=== PATIENT | male | born 1975 | race Caucasian/White ===

== ENCOUNTER 2020-10-19 18:44 | Inpatient (IN) | payer MEDICARE, OTHER ==
[~2020-10-19] VITALS: Ht 182.9 cm; Wt 67.1 kg
[2020-10-19] MEDS ORDERED: HYDROCODON-ACE1 EA10 PO (20:26)
[2020-10-19] MEDS ORDERED: SYNTHROID175 MCG PO (20:26)
[2020-10-20] MEDS ORDERED: FENTANYL1 EACH TD (08:47)
[2020-10-20] MEDS ORDERED: SILDENAFIL CITR50 MG PO (08:48)
--- NOTE | 2020-10-21 20:06 | EKG ---
[facility] [address] [facility] [place], [place] [address] Signed Normal sinus rhythm Normal ECG No previous ECGs available Confirmed by DIETER HEBERT DO ([id number]) on 10/21/2020 8:06:10 PM Electronically Signed By: DIETER HEBERT DO 10/21/20 2006 PATIENT NAME: VITA BOWDEN Electrocardiogram DATE OF : 73 PHYSICIAN: DIETER HEBERT DO REPORT #: [id number] REPORT IS CONFIDENTIAL AND NOT TO BE RELEASED WITHOUT AUTHORIZATION
--- NOTE | 2020-10-22 15:53 | CONS ---
[facility] [address] [place], [place] [address] Signed DATE OF CONSULTATION: 10/21/2020 REQUESTING PHYSICIAN: Dieter Valdivia MD PROBLEM: Profound weight loss and dysphagia. HISTORY OF PRESENT ILLNESS: This 44-year-old white man was admitted by Dr. Valdivia on October 20, 2020, having presented to the emergency room with "intractable vomiting." He was additionally found to have severe hypothyroidism with a TSH level of 43.15. He was noted to have normal electrolytes, but no liver enzymes were obtained nor was an albumin level available. The patient describes at least two months of the symptoms of inability to swallow. He denies any hematemesis or blood per rectum. Liquids are able to go down reasonably well, but solid oral intake is immediately met with symptoms of regurgitation. The patient tells me he has had upper endoscopy at least 4 or 5 times in the past including in [place], [place] and elsewhere. He denies any prior knowledge of a "stricture" or narrow area of the esophagus that had been described to him. He did describe "ulcers" including the stomach and duodenum he says. He is not known to have celiac disease and is unaware of that diagnosis. The patient lives with his parents and at least one of his five children in the [facility]. He does not work. He is considered "disabled" related to chronic back pain problems. MEDICATIONS: At home have included hydrocodone with Tylenol, Synthroid, which he has not been taking and fentanyl patch for back pain problems. He has vague sensory changes of his lower abdomen and extremities including numbness and tingling he says. He had developed shortness of breath and cough over the past three weeks and was incidentally noted on lab screening at admission to have a positive COVID titer. On that basis, he is treated as having active COVID disease. As might be expected, he did not get the vaccine. He notes his kindergarten age child has been exposed to COVID at school; quite obviously, she was exposed likely at home as well. REVIEW OF SYSTEMS: He denies any hematemesis or blood per rectum. He does not have deep abdominal pain particularly. PHYSICAL EXAMINATION: Electronically Signed By: CALLIE SCHMIDT MD 10/22/20 1553 PATIENT NAME: VITA BOWDEN CONSULTATION DATE OF : 73 REPORT #: [id number] PHYSICIAN: CALLIE SCHMIDT MD PCP: OTHER PCP REPORT IS CONFIDENTIAL AND NOT TO BE RELEASED WITHOUT AUTHORIZATION [facility] [address] [place], [place] [address] Signed GENERAL: This is a thin white man who does not look to be extremely disturbed at this time. VITAL SIGNS: Temperature is 98.5, pulse 68, blood pressure is 107/71. NECK: Trachea is midline. He has no hoarseness. CHEST: Shows normal respiratory excursion without tachypnea. ABDOMEN: Scaphoid and nondistended. There is no focal mass or tenderness. I see no ascites EXTREMITIES: Show no clubbing, cyanosis, or edema. LAB STUDIES: Most recently show white count of 3.6, hematocrit of 33.5, platelets 165,000. Sedimentation rate was 5. Comp profile shows normal electrolytes. Creatinine 0.63, glucose 83, calcium 8.3, magnesium 1.8, 1.8. TSH was 43.5 as noted. Urinalysis was positive regarding bilirubin, leukocyte esterase negative and otherwise negative. IMAGING STUDIES: Include a chest x-ray at presentation, which was completely clear without sign of infiltrate or other abnormality. CT scan was obtained on October 19, which shows a liver that is somewhat enlarged. Spleen appears to be normal. Both kidneys are normal. I see no sign of pancreatic neoplasm or intrahepatic ductal dilatation of the liver. Coronal view shows the liver to be somewhat enlarged, the gallbladder visible but not acutely inflamed. No sign of intra-abdominal neoplasm in any way. The stomach and GE junction are well visualized and seemed to be normal on coronal view of CT scan. ASSESSMENT: His problem seems mostly to be a distal dysphagia issue for which he has prompt regurgitation of pretty much anything that is ingested. Fluids have been administered and he is getting intravenous Synthroid as he ought to. His hypothyroidism is from the distant past and his acute issue is related to inability to tolerate his Synthroid pill. He denies any family history of esophageal or stomach cancer. He himself has had no hematemesis or blood per rectum. It is notable that he has undergone upper endoscopy on several occasions elsewhere including [facility] and describes multiple ulcers, though no stricture or neoplasm per se. We may be able to obtain at least some of those records to assess what might have been diagnosed in the past on his upper gastrointestinal tract. Review of his CT scan shows no significant atherosclerotic lesions and I think it is quite unlikely that he would have mesenteric ischemia in any way. A lateral view of his aorta at the time of evaluation through the CT scan shows a widely patent celiac artery trunk and superior mesenteric artery trunk and therefore quite unlikely to have mesenteric ischemia as the underlying issue. The effects of profound hypothyroidism on gastrointestinal tract motility are significant. It would be less likely, though it is still possible, that his severe Electronically Signed By: CALLIE SCHMIDT MD 10/22/20 0993 PATIENT NAME: LEBANESE,VITA CHRISTEN CONSULTATION DATE OF : 73 REPORT #: [id number] PHYSICIAN: CALLIE SCHMIDT MD PCP: OTHER PCP REPORT IS CONFIDENTIAL AND NOT TO BE RELEASED WITHOUT AUTHORIZATION [facility] [address] [place], [place] [address] Signed hypothyroidism is contributing to his problem also. Mindful that his hypothyroidism is largely related to inability to take oral intake including his pills, it is less likely that thyroid derangement is accounting for that much dysmotility as the problem antedated his inability to take his Synthroid, though it is still possible of course. Complicating matters is his COVID infection. He does not have pulmonary symptoms and it is unclear quite how long he has actually had COVID-19, it may be as little as 2 days or as long as months. PLAN: We will see the effect of the intravenous Synthroid that is being administered for his profound hypothyroidism. If nothing else, it may improve his neurosensory complaints of numbness and tingling of his lower body and arms. Upper endoscopy is a high-risk procedure as regards secondary infection related to COVID and despite personal protection equipment and vaccination, avoidance of unnecessary interventions is still appropriate. The imaging study does not show esophageal or gastric neoplasm and that of course is also noteworthy. The possibility of profound dysmotility of esophagus or stomach is also considered. However, the stomach really does not appear dilated and therefore gastroparesis as the dominant diagnosis is less likely also. Most likely, there is some component of esophageal stricture or other impediment to swallowing whether functional or anatomic. We will endeavor to find some operative report from his upper endoscopy results, which there have been multiple episodes. This may be enlightening as to the etiology of his problem as well. Callie Schmidt MD JM/MODL /[id number] cc: Dieter Valdivia MD Copies: DIETER VALDIVIA DO Electronically Signed By: CALLIE SCHMIDT MD 10/22/20 1553 PATIENT NAME: VITA BOWDEN CONSULTATION DATE OF : 73 REPORT #: [id number] PHYSICIAN: CALLIE SCHMIDT MD PCP: OTHER PCP REPORT IS CONFIDENTIAL AND NOT TO BE RELEASED WITHOUT AUTHORIZATION [facility] [address] [place] [address] [place], [place] [address] Signed ~ Electronically Signed By: CALLIE SCHMIDT MD 10/22/20 155 PATIENT NAME: VITA BOWDEN CONSULTATION DATE OF : 73 REPORT #: [id number] PHYSICIAN: CALLIE SCHMIDT MD PCP: OTHER PCP REPORT IS CONFIDENTIAL AND NOT TO BE RELEASED WITHOUT AUTHORIZATION
[2020-10-23] MEDS ORDERED: HYDROCODON-ACE1 EA10 PO (11:55)
[2020-10-23] MEDS ORDERED: DURAGESIC1 EACH TD (11:55)
[2020-10-23] MEDS ORDERED: ONDANSETRON ODT4 MG SL (11:56)
[2020-10-23] MEDS ORDERED: SYNTHROID175 MCG PO (11:56)
[2020-10-23] MEDS ORDERED: THERA TABLET400 MCG PO (11:57)
== END 2020-10-23 12:58 | disposition home or self-care (01) | DRG 643 ==
LOC: ED 18:44 → MS 18:47
PROVIDERS: ADMIT Student in an Organized Health Care Education/Training Program; ATTEND Student in an Organized Health Care Education/Training Program
PROC: 8E0ZXY6 Isolation (ICD-10-PCS; principal; 2020-10-20)
DX: E03.9 Hypothyroidism, unspecified (principal); U07.1 COVID-19; R13.12 Dysphagia, oropharyngeal phase; R20.2 Paresthesia of skin; Z20.822 Contact with and (suspected) exposure to COVID-19; G89.29 Other chronic pain; Z79.899 Other long term (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; M54.9 Dorsalgia, unspecified; Z88.8 Allergy status to other drugs, medicaments and biological substances
CPT/HCPCS: 71045; 74177; 80048; 80053; 80500; 81001; 82607; 82746; 83690; 83735; 84100; 84443; 85025; 85610; 85651; 93005; 93010; 96365; 96376; 97161; 99285-25; C9113; G0378; J1650; J2405; J2765; J3411; J3475; J3480; J7030; J7060; J7121; Q9967; U0003

== ENCOUNTER 2021-04-13 02:56 | Emergency (ER) | payer MEDICARE, OTHER ==
[~2021-04-13] VITALS: Ht 182.9 cm; Wt 68.9 kg
[~2021-04-13 02:56] MED LIST: DURAGESIC1 EACH TD; FENTANYL1 EACH TD; HYDROCODON-ACE1 EA10 PO; ONDANSETRON ODT4 MG SL; SILDENAFIL CITR50 MG PO; SYNTHROID175 MCG PO; THERA TABLET400 MCG PO
--- OUTSIDE RECORDS SUMMARY | 2021-04-13 03:00 | XMS ---
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 [place] [facility] ([facility] MO.) [facility] [facility] NOTE: Visits indicate total known visits. ED/C VISIT TRACKING (12 MO.) 04/13/2021 02:57 KATHY Mcgee TYPE: Emergency COMPLAINT: - BACK PAIN, WEAKNESS 04/09/2021 12:[facility] DIAGNOSES: - Fatigue - Emesis - Procedure and treatment not carried out due to patient leaving prior to being seen by health care provider 03/18/2021 17:01 [facility]: Emergency DIAGNOSES: - Low back pain, unspecified - Other intervertebral disc degeneration, lumbar region - Other chronic pain - Back Pain - Strain of muscle, fascia and tendon of lower back, initial encounter 10/19/2020 18:46 [place]Y [place] TYPE: Emergency COMPLAINT: - FLU SYMPTOMS INPATIENT VISIT TRACKING (12 MO.) 10/20/2020 11:19 [place]Y [place] TYPE: Medical Surgical COMPLAINT: - INTRACTABLE VOMITING DIAGNOSES: - Dysphagia, oropharyngeal phase - Dorsalgia, unspecified - Other chronic pain - Dysphagia, oropharyngeal phase - Other jail (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 - Other intermediate manager (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 - Hypothyroidism, unspecified - COVID-19 - Paresthesia of skin - COVID-19 - Other chronic pain - Allergy status to other drugs, medicaments and biological substances - Allergy status to other drugs, medicaments and biological substances - Dorsalgia, unspecified - Paresthesia of skin [email or web address]
[2021-04-13] MEDS ORDERED: SYNTHROID175 MCG PO (03:11)
[2021-04-13] MEDS ORDERED: NEURONTIN300 MG PO (04:23)
[2021-04-13] MEDS ORDERED: medrol dose pack (04:23)
[2021-04-13] MEDS ORDERED: CYCLOBENZAPRINE10 MG PO (04:23)
== END 2021-04-13 04:45 | disposition home or self-care (01) ==
LOC: ED 02:56
DX: M54.50 Low back pain, unspecified (principal); G89.29 Other chronic pain; N39.0 Urinary tract infection, site not specified; E03.9 Hypothyroidism, unspecified; Z88.8 Allergy status to other drugs, medicaments and biological substances; Z79.899 Other long term (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
CPT/HCPCS: 36415; 72131; 80048; 80503; 81001; 85025; 87088; 96374; 96375; 99284-25; J1885; J3360; J7030

== ENCOUNTER 2021-04-16 20:28 | Emergency (ER) | payer MEDICARE, OTHER ==
[~2021-04-16] VITALS: Ht 182.9 cm; Wt 68.9 kg
[~2021-04-16 20:28] MED LIST changes: +CYCLOBENZAPRINE10 MG PO; +NEURONTIN300 MG PO; +medrol dose pack
--- OUTSIDE RECORDS SUMMARY | 2021-04-16 20:34 | XMS ---
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 [place] VISIT COUNT (12 MO.) 2 [facility] [address] TOTAL 5 NOTE: Visits indicate total known visits. ED/UCC VISIT TRACKING (12 MO.) 04/16/2021 20:31 KATHY Mcgee TYPE: Emergency COMPLAINT: - LOWER EXTREMITY PAIN 04/13/2021 02:57 KATHY Mcgee TYPE: Emergency COMPLAINT: - BACK PAIN, WEAKNESS 04/09/2021 12:35 [facility] Davida [place] TYPE: Emergency DIAGNOSES: - Fatigue - Emesis - Procedure and treatment not carried out due to patient leaving prior to being seen by health care provider 03/18/2021 17:01 [facility] Davida [place] TYPE: Emergency DIAGNOSES: - Low back pain, unspecified - Other intervertebral disc degeneration, lumbar region - Other chronic pain - Back Pain - Strain of muscle, fascia and tendon of lower back, initial encounter 10/19/2020 18:46 KATHY Mcgee TYPE: Emergency COMPLAINT: - FLU SYMPTOMS INPATIENT VISIT TRACKING (12 MO.) 10/20/2020 11:19 [facility]Y [place] TYPE: Medical Surgical COMPLAINT: - INTRACTABLE VOMITING DIAGNOSES: - Dysphagia, oropharyngeal phase - Dorsalgia, unspecified - Other chronic pain - Dysphagia, oropharyngeal phase - Other residential (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 - Other residential (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 - Hypothyroidism, unspecified - COVID-19 - Paresthesia of skin - COVID-19 - Other chronic pain - Allergy status to other drugs, medicaments and biological substances - Allergy status to other drugs, medicaments and biological substances - Dorsalgia, unspecified - Paresthesia of skin [email or web address]
[2021-04-16] MEDS ORDERED: BACTRIM DS TAB1 EACH PO (22:40)
== END 2021-04-16 23:10 | disposition home or self-care (01) ==
LOC: ED 20:28
DX: M54.50 Low back pain, unspecified (principal); G89.29 Other chronic pain; N39.0 Urinary tract infection, site not specified; E03.9 Hypothyroidism, unspecified; Z88.8 Allergy status to other drugs, medicaments and biological substances; Z79.899 Other long term (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
CPT/HCPCS: 81001; 96372; 99283; A9270; J1885

== ENCOUNTER 2021-04-22 21:42 | Emergency (ER) | payer MEDICARE, OTHER ==
[~2021-04-22] VITALS: Ht 182.9 cm; Wt 69.0 kg
[~2021-04-22 21:42] MED LIST changes: +BACTRIM DS TAB1 EACH PO
--- OUTSIDE RECORDS SUMMARY | 2021-04-22 21:44 | XMS ---
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 [place] VISIT COUNT (12 MO.) 2 Franki Espinoza TOTAL 6 NOTE: Visits indicate total known visits. ED/UCC VISIT TRACKING (12 MO.) 04/22/2021 21:43 [place] [place] TYPE: Emergency COMPLAINT: - BACK PAIN 04/16/2021 20:31 [facility]Y [facility] [place] TYPE: Emergency COMPLAINT: - LOWER EXTREMITY PAIN/ NO INJ DIAGNOSES: - Other watermelon inspector (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 - Hypothyroidism, unspecified - LOW BACK PAIN, UNSPECIFIED - Other chronic pain - Allergy status to other drugs, medicaments and biological substances - Urinary tract infection, site not specified 04/13/2021 02:57 [place]ATHY [place] TYPE: Emergency COMPLAINT: - BACK PAIN, WEAKNESS DIAGNOSES: - LOW BACK PAIN, UNSPECIFIED - Other snf (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 - Hypothyroidism, unspecified - Allergy status to other drugs, medicaments and biological substances - Urinary tract infection, site not specified - Other chronic pain 04/09/2021 12:35 [facility] DIAGNOSES: - Fatigue - Emesis - Procedure and treatment not carried out due to patient leaving prior to being seen by health care provider 03/18/2021 17:01 [facility] [place] TYPE: Emergency DIAGNOSES: - Low back pain, unspecified - Other intervertebral disc degeneration, lumbar region - Other chronic pain - Back Pain - Strain of muscle, fascia and tendon of lower back, initial encounter 10/19/2020 18:46 [place]ATHY [place] TYPE: Emergency COMPLAINT: - FLU SYMPTOMS INPATIENT VISIT TRACKING (12 MO.) 10/20/2020 11:[address] [facility] [address] [place] TYPE: Medical Surgical COMPLAINT: - INTRACTABLE VOMITING DIAGNOSES: - Dysphagia, oropharyngeal phase - Dorsalgia, unspecified - Other chronic pain - Dysphagia, oropharyngeal phase - Other watermelon inspector (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 - Other watermelon inspector (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 - Hypothyroidism, unspecified - COVID-19 - Paresthesia of skin - COVID-19 - Other chronic pain - Allergy status to other drugs, medicaments and biological substances - Allergy status to other drugs, medicaments and biological substances - Dorsalgia, unspecified - Paresthesia of skin [email or web address]
[2021-04-23] MEDS ORDERED: PROTONIX40 MG PO (00:23)
--- NOTE | 2021-04-24 09:35 | EKG ---
[facility] [place] [facility] [address] [place] [address] Signed Normal sinus rhythm Normal ECG When compared with ECG of 21-OCT-2020 10:10, No significant change was found Confirmed by BAILEE BLAIR MD ([id number]) on 04/24/2021 9:35:14 AM Electronically Signed By: BAILEE BLAIR MD 04/24/21 0935 PATIENT NAME: VITA BOWDEN Electrocardiogram DATE OF : 73 PHYSICIAN: BAILEE BLAIR MD REPORT #: [id number] REPORT IS CONFIDENTIAL AND NOT TO BE RELEASED WITHOUT AUTHORIZATION
== END 2021-04-23 00:45 | disposition home or self-care (01) ==
LOC: ED 21:42
DX: M54.50 Low back pain, unspecified (principal); G89.29 Other chronic pain; K27.9 Peptic ulcer, site unspecified, unspecified as acute or chronic, without hemorrhage or perforation; E03.9 Hypothyroidism, unspecified; Z79.899 Other long term (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
CPT/HCPCS: 36415; 80053; 80503; 81001; 85025; 85610; 85730; 93005; 93010; 96374; 99284-25; C9113; J7030

== ENCOUNTER 2021-07-22 12:08 | Emergency (ER) | payer MEDICARE, OTHER ==
[~2021-07-22] VITALS: Ht 182.9 cm; Wt 69.0 kg
[~2021-07-22 12:08] MED LIST changes: +PROTONIX40 MG PO
--- OUTSIDE RECORDS SUMMARY | 2021-07-22 12:10 | XMS ---
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 - 2 Visits in 30 Days - 6 ED Visits in 6 Months CARE PROVIDERS ROSAURA BABB Internal Medicine 04/17/2021-Current PHONE: Unknown PURA DOBSON [facility] Current PHONE: Unknown ERMELINDA SHIN [facility] Current PHONE: Unknown DARNELL Family Medicine 04/17/2021-Current TIKI PHONE: Unknown TRISTAN BEBETO [facility] 04/17/2021-Current PHONE: Unknown Shruthi has no Care Guidelines for this patient. [place] VISIT COUNT (12 MO.) 4 Franki Espinoza TOTAL 9 NOTE: Visits indicate total known visits. ED/UCC VISIT TRACKING (12 MO.) 07/22/2021 12:08 KATHY Mcgee TYPE: Emergency COMPLAINT: - BACK PAIN 07[facility]10/2021 14:[facility] DIAGNOSES: - Spasms - Cramp and spasm - Restlessness and agitation 05/27/2021 15:11 [facility] DIAGNOSES: - Muscle wasting and atrophy, not elsewhere classified, unspecified site - Other intervertebral disc degeneration, lumbar region - Hypokalemia - Alcohol dependence with withdrawal, uncomplicated - Seizure (Adult - [place]) - Unspecified convulsions - Hypo-osmolality and hyponatremia 04/22/2021 21:43 KATHY Mcgee TYPE: Emergency COMPLAINT: - BACK PAIN DIAGNOSES: - Other chronic pain - Hypothyroidism, unspecified - LOW BACK PAIN, UNSPECIFIED - Other longterm (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 - Peptic ulcer, site unspecified, unspecified as acute or chronic, without hemorrhage or perforation - Low back pain, unspecified 04/16/2021 20:31 KATHY Mcgee TYPE: Emergency COMPLAINT: - LOWER EXTREMITY PAIN/ NO INJ DIAGNOSES: - Other longterm (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 - Low back pain, unspecified - Hypothyroidism, unspecified - LOW BACK PAIN, UNSPECIFIED - Other chronic pain - Allergy status to other drugs, medicaments and biological substances - Urinary tract infection, site not specified 04/13/2021 02:57 KATHY Mcgee TYPE: Emergency COMPLAINT: - BACK PAIN, WEAKNESS DIAGNOSES: - LOW BACK PAIN, UNSPECIFIED - 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 (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 - Hypothyroidism, unspecified - Allergy status to other drugs, medicaments and biological substances - Urinary tract infection, site not specified - Other chronic pain - Low back pain, unspecified 04/09[facility]2021 [facility] DIAGNOSES: - Fatigue - Emesis - Procedure and treatment not carried out due to patient leaving prior to being seen by health care provider 03/18/2021 17:01 [facility] Caty REVELES TYPE: Emergency DIAGNOSES: - Low back pain, unspecified - Other intervertebral disc degeneration, lumbar region - Other chronic pain - Back Pain - Strain of muscle, fascia and tendon of lower back, initial encounter 10/19/2020 18:46 KATHY Mcgee TYPE: Emergency COMPLAINT: - FLU SYMPTOMS INPATIENT VISIT TRACKING (12 MO.) 06/14/2021 07:35 [place] TYPE: Inpatient COMPLAINT: - SWING: ETOH WITHDRAWL; HYPONATREMIA DIAGNOSES: 0. Other malaise 1. Other chronic pain 2. Orthostatic hypotension 3. Orthostatic hypotension 3. Unspecified severe protein-calorie malnutrition 4. Unspecified severe protein-calorie malnutrition 4. Other chronic pain 5. Dorsalgia, unspecified 5. Dorsalgia, unspecified 6. Alcoholic polyneuropathy 6. Alcoholic polyneuropathy 7. Radiculopathy, lumbar region 7. Radiculopathy, lumbar region 8. Other spondylosis with radiculopathy, lumbosacral region 8. Hypopituitarism 9. Hypopituitarism 9. Epilepsy, unspecified, not intractable, without status epilepticus 10. Other seizures 10. Alcohol dependence with withdrawal, unspecified 11. Alcohol dependence with withdrawal, unspecified 11. Alcohol dependence with intoxication, unspecified - Allergy status to other drugs, medicaments and biological substances - Alcohol dependence with intoxication, unspecified - Unspecified adrenocortical insufficiency - Major depressive disorder, single episode, unspecified - Other pancytopenia - Personal history of peptic ulcer disease - Personal history of urinary (tract) infections - Migraine, unspecified, not intractable, without status migrainosus - Opioid use, unspecified, uncomplicated - Hypothyroidism, unspecified - Sciatica, unspecified side - Alcoholic hepatitis without ascites - Vitamin D deficiency, unspecified - Anxiety disorder, unspecified - Peptic ulcer, site unspecified, unspecified as acute or chronic, without hemorrhage or perforation - Personal history of urinary (tract) infections - Allergy status to other drugs, medicaments and biological substances - Migraine, unspecified, not intractable, without status migrainosus - Vitamin D deficiency, unspecified - Peptic ulcer, site unspecified, unspecified as acute or chronic, without hemorrhage or perforation - Anxiety disorder, unspecified - Major depressive disorder, single episode, unspecified - Alcoholic hepatitis without ascites - Hypo-osmolality and hyponatremia - Opioid use, unspecified, uncomplicated - Hypothyroidism, unspecified 05/27/2021 15:11 [facility] DIAGNOSES: - Nausea with vomiting, unspecified - Syncope and collapse - Other specified postprocedural states - Other chronic pain - Hypothyroidism, unspecified - Hypokalemia - Other intervertebral disc degeneration, lumbar region - Low back pain, unspecified - Muscle wasting and atrophy, not elsewhere classified, multiple sites - Unspecified convulsions - Alcoholic hepatitis without ascites - Acute cystitis without hematuria - Hypomagnesemia - Rhabdomyolysis - Fibromyalgia - Lumbago with sciatica, left side - Unspecified adrenocortical insufficiency - Alcohol dependence with withdrawal, uncomplicated - Hypopituitarism - Spinal stenosis, lumbar region without neurogenic claudication - Hypo-osmolality and hyponatremia - Lumbago with sciatica, right side - Unspecified severe protein-calorie malnutrition - Muscle wasting and atrophy, not elsewhere classified, unspecified site - Radiculopathy, lumbar region 10/20/2020 11:19 [facility] [place] TYPE: Medical Surgical COMPLAINT: - INTRACTABLE VOMITING DIAGNOSES: - Dysphagia, oropharyngeal phase - Dorsalgia, unspecified - Other chronic pain - Dysphagia, oropharyngeal phase - Other longterm (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 - Other longterm (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 - Hypothyroidism, unspecified - COVID-19 - Paresthesia of skin - COVID-19 - Other chronic pain - Allergy status to other drugs, medicaments and biological substances - Allergy status to other drugs, medicaments and biological substances - Dorsalgia, unspecified - Paresthesia of skin [email or web address]
--- NOTE | 2021-07-22 15:16 | EKG ---
[facility] [address] [place] [address] Signed Sinus tachycardia Rightward axis Nonspecific T wave abnormality Abnormal ECG When compared with ECG of 22-APR-2021 23:39, No significant change was found Confirmed by SHANTI URBINA MD ([id number]) on 07/22/2021 3:16:50 PM Electronically Signed By: SHANTI URBINA MD 07/22/21 1516 PATIENT NAME: ENGLISHVITA KATALINABROWN Electrocardiogram DATE OF : 73 PHYSICIAN: SHANTI URBINA MD REPORT #: [id number] REPORT IS CONFIDENTIAL AND NOT TO BE RELEASED WITHOUT AUTHORIZATION
[2021-07-22] MEDS ORDERED: SILDENAFIL CITR50 MG PO (15:35)
[2021-07-22] MEDS ORDERED: VITAMIN B-1100 MG PO (15:35)
[2021-07-22] MEDS ORDERED: BACLOFEN10 MG PO (15:35)
[2021-07-22] MEDS ORDERED: BUPRENORPHIN-N1 EACH SL (15:36)
[2021-07-22] MEDS ORDERED: DULOXETINE HCL30 MG PO (15:36)
[2021-07-22] MEDS ORDERED: FOLIC ACID1 MG PO (15:36)
[2021-07-22] MEDS ORDERED: DULOXETINE HCL60 MG PO (15:36)
[2021-07-22] MEDS ORDERED: MAG-OXIDE400 MG PO (15:37)
[2021-07-22] MEDS ORDERED: LYRICA100 MG PO (15:37)
[2021-07-22] MEDS ORDERED: HYDROCORTISONE5 MG PO (15:37)
[2021-07-22] MEDS ORDERED: HYDROCORTISONE10 MG PO (15:37)
[2021-07-22] MEDS ORDERED: MELOXICAM7.5 MG PO (15:38)
[2021-07-22] MEDS ORDERED: PREDNISONE20 MG PO (17:58)
[2021-07-22] MEDS ORDERED: PERCOCET 5-3251 EACH PO (17:58)
== END 2021-07-22 18:10 | disposition home or self-care (01) ==
LOC: ED 12:08
DX: M54.9 Dorsalgia, unspecified (principal); G89.29 Other chronic pain; R00.0 Tachycardia, unspecified; E03.9 Hypothyroidism, unspecified; Z79.899 Other long term (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
CPT/HCPCS: 36415; 72131; 80053; 81001; 83690; 83735; 84439; 84443; 85025; 93005; 93010; 96374; 96375; 99285-25; G0480; J1100; J1885; J2270; J7030